=== PATIENT | male | born 1990 | race Hispanic/Latino ===

== ENCOUNTER 2017-12-16 20:50 | Emergency (ER) | payer BC ==
[2017-12-16 21:01] VITALS: BP 138/74; PULSE 60; RESP 16; O2SAT 100
[2017-12-16] MEDS ORDERED: Amoxicillin-Clav 875-125 mg Tab PO STA (21:23)
--- NOTE | 2017-12-16 21:23 | ED PDOC ---
HPI: Dental Pain/Injury Time Seen by Provider: 12/16/17 21:01 Chief Complaint (Nursing): Dental Pain Chief Complaint (Provider): Dental Pain History Per: Patient History/Exam Limitations: no limitations Onset/Duration Of Symptoms: Days Current Symptoms Are (Timing): Still Present Additional Complaint(s): 27-year-old male presents to ED for evaluation of right upper dental pain x2 days. Patient reports he had a cavity filled on the affected side 3 weeks ago and initially had no pain until 2 days ago. Patient reports he took Ibuprofen earlier today with minimal relief of pain. Patient expresses concern for dental infection. Denies fever, chills. No other complaints at present. PMD: Cannot recall, in [place], [place] Past Medical History Reviewed: Historical Data, Nursing Documentation, Vital Signs Vital Signs: Last Vital Signs Temp 98.5 F 12/16/17 20:59 Pulse 60 12/16/17 20:59 Resp 16 12/16/17 20:59 BP 138/74 12/16/17 20:59 Pulse Ox 100 12/16/17 20:59 - Medical History PMH: No Chronic Diseases - Surgical History Surgical History: No Surg Hx - Family History Family History: States: Unknown Family Hx - Social History Current smoker - smoking cessation education provided: No Alcohol: Social Drugs: Denies - Home Medications Home Medications: Ambulatory Orders Medication Instructions Recorded Acetaminophen [Acetaminophen 8 650 mg PO Q8 PRN #21 tablet.er 12/16/17 Hour] Amoxicillin/Clavulanate [Augmentin 1 tab PO BID #14 tab 12/16/17 875 MG-125 MG] Ibuprofen [Motrin Tab] 800 mg PO Q8 PRN #21 tab 12/16/17 - Allergies Allergies/Adverse Reactions: Allergies Allergy/AdvReac Type Severity Reaction Status Date / Time No Known Allergies Allergy Verified 12/16/17 20:59 Review of Systems ROS Statement: Except As Marked, All Systems Reviewed And Found Negative ENT: Positive for: Other (right upper dental pain) Physical Exam - Reviewed Nursing Documentation Reviewed: Yes Vital Signs Reviewed: Yes - Physical Exam Appears: Positive for: Well (Rest comfortably), Non-toxic, No Acute Distress Head Exam: Positive for: NORMOCEPHALIC Skin: Positive for: Normal Color, Warm, Dry Eye Exam: Positive for: EOMI, PERRL ENT: Positive for: Pharynx Is (Clear, Uvula midline.), Other ((+) Filling in place to the right upper 2nd molar, (+) tenderness to palpation, (-) gum erythema or swelling, (-) gingival fluctuance). Negative for: Pharyngeal Erythema Neck: Positive for: Painless ROM, Supple Cardiovascular/Chest: Positive for: Regular Rate, Rhythm Respiratory: Positive for: Normal Breath Sounds. Negative for: Respiratory Distress Neurologic/Psych: Positive for: Alert, Oriented (x3), Gait (steady in ED) - ECG O2 Sat by Pulse Oximetry: 100 (RA) Pulse Ox Interpretation: Normal Medical Decision Making Medical Decision Making: Time: 21:23 Impression(s): Dental Pain, Possible Dental Infection Plan: - Toradol 30 mg IM - Augmentin 875 MG-125 MG Tab - Re-evaluation 2149 On re-evaluation, patient reports improvement of symptoms. On exam, patient remains AAOx3, in no acute distress. On exam, neck is supple, lungs CTA, cardiac RRR, neuro exam shows no focal findings. VSS, stable for discharge. Diagnostic results d/w the patient in great detail. Dx of toothache, possible dental infection d/w the patient. Based on history, exam and diagnostic results plan will be for discharge and outpatient dental follow up. Advised to follow up with primary care physician/dental in 1-2 days without fail. Advised to take medication as prescribed. Return to the emergency room at any time for any new or worsening symptoms. Patient states he fully agrees with and understands discharge instructions. States that he agrees with the plan and disposition. Verbalized and repeated discharge instructions and plan. I have given the patient opportunity to ask any additional questions. Scribe Attestation: Documented by Handy Yanes, acting as a scribe for Rosaline Aguirre PA-C. Provider Scribe Attestation: All medical record entries made by the Scribe were at my direction and personally dictated by me. I have reviewed the chart and agree that the record accurately reflects my personal performance of the history, physical exam, medical decision making, and the department course for this patient. I have also personally directed, reviewed, and agree with the discharge instructions and disposition. Disposition - Clinical Impression Clinical Impression: Pain, dental, Dental infection - Patient ED Disposition Is Patient to be Admitted: No Counseled Patient/Family Regarding: Studies Performed, Diagnosis, Need For Followup, Rx Given - Disposition Disposition: Routine/Home Disposition Time: 21:54 Condition: STABLE Additional Instructions: FOLLOW UP WITH PMD/DENTIST IN 1-2 DAYS WITHOUT FAIL. RETURN TO ED WITH ANY NEW OR WORSENING SYMPTOMS. Prescriptions: Acetaminophen [Acetaminophen 8 Hour] 650 mg PO Q8 PRN #21 tablet.er PRN Reason: Pain, Moderate (4-7) Amoxicillin/Clavulanate [Augmentin 875 MG-125 MG] 1 tab PO BID #14 tab Ibuprofen [Motrin Tab] 800 mg PO Q8 PRN #21 tab PRN Reason: Pain, Severe (8-10) Instructions: Dental Pain (DC) Forms: [facility] (Jordanian) Print Language: GERMAN - POA Present On Arrival: None
[2017-12-16 22:14] VITALS: TEMP 98.1
== END 2017-12-16 22:12 | disposition home or self-care (01) ==
LOC: H.ER 20:50
DX: K04.7 Periapical abscess without sinus (principal)
CPT/HCPCS: 96372; 99283; J1885